=== PATIENT | female | born 1970 | race Caucasian/White ===

== ENCOUNTER 2024-04-26 09:22 | Emergency (ER) | payer BC, SELFPAY ==
[2024-04-26 09:29] VITALS: BP 145/85; PULSE 71; RESP 18; TEMP 36.2; O2SAT 95; BMI 43.5
--- NOTE | 2024-04-26 09:44 | ED.GENADULT ---
HPI - General Adult General Date Seen: 04/26/24 Chief complaint: Extremity Pain/Injury, Lower Stated complaint: L foot pain Time Seen by Provider: 04/26/24 09:43 History of Present Illness HPI narrative: 53 yo F presenting to the ER today for left foot pain. She notes that a couple of weeks ago she was cleaning her house wearing slippers without good arch support and developed some pain in the bottom of her right foot, in the sole. She has specks she is probably developed plantar fasciitis. After that she disposed of her slippers which had poor arch support and has been wearing shoes with better arch support. She had been feeling better. However yesterday she was walking up a flight of stairs at work. She had gone up 26 steps and when she was stepping up and putting weight down on to her right foot she felt a ?pop? in the sole of her right foot and since then she has been having pain across the right foot. Pain is predominantly in the calcaneus and in the bottom of the midfoot and also in the medial foot and in the arch. It feels swollen. She says when she steps on it it feels like she is ?stepping on a baseball. ?. No bruising. No redness. No pain in the ankle or Achilles. No pain in her leg. Related Data Home Medications ?Medication ?Instructions ?Recorded ?Confirmed alprazolam 0.25 mg tablet (Xanax) 0.25 mg PO BID-TID PRN 04/26/24 04/26/24 cholecalciferol (vitamin D3) 125 mcg PO DAILY 04/26/24 04/26/24 escitalopram oxalate .ROUTE 04/26/24 levothyroxine 200 mcg capsule 200 mcg PO DAILY 04/26/24 04/26/24 levothyroxine 25 mcg tablet 25 mcg PO DAILY 04/26/24 04/26/24 metoprolol tartrate 25 mg tablet 25 mg PO DAILY 04/26/24 04/26/24 Allergies Allergy/AdvReac Type Severity Reaction Status Date / Time No Known Drug Allergies Allergy Verified 04/26/24 09:36 [facility] Social History Smoking Status: Never smoker Do you use any of these nicotine containing products: None How often do you have a drink containing alcohol: never How often do you have six or more drinks on one occasion: Never AUDIT-C Alcohol total score: 0 Non-prescribed substance use: denies use Exam Narrative: Exam Narrative: Constitutional: Appears well-developed and well-nourished. Active. Non-toxic appearing. HENT: Head: Atraumatic. No signs of injury. Nose: No nasal discharge. Mouth/Throat: Mucous membranes are moist. Pharynx is normal. Tonsils symmetric. Uvula midline. Airway patent. Eyes: Conjunctivae normal and EOM are normal. Pupils are equal, round, and reactive to light. Right eye exhibits no discharge. Left eye exhibits no discharge. No icterus. Neck: Normal range of motion. Neck supple. No adenopathy. No stridor. Cardiovascular: Normal rate and regular rhythm. Strong DP and PT pulses. Normal distal cap refill. Foot is pink, warm, well perfused Pulmonary/Chest: Effort normal. No stridor. No respiratory distress. No wheezes.No rhonchi. No rales. No retractions. Musculoskeletal: Normal except for her left foot-normal range of motion. No edema. No tenderness. No deformity. Left foot- No tenderness of the gastrocs, Achilles. Medial and lateral malleoli are nontender. Inspection of the foot is normal. No bruising or swelling. No redness. She is quite tender on the sole of the foot especially on the calcaneus and the mid foot in the arch. No bony crepitus. No tenderness over the metatarsal heads and toes. Fifth metatarsal is nontender. She does have intact toe flexion and extension but endorses substantially increased foot pain when she flexes her toes. Neurological: Alert. Normal strength. No cranial nerve deficit or sensory deficit. Coordination normal. GCS eye subscore is 4. GCS verbal subscore is 5. GCS motor subscore is 6. Skin: Skin is warm. No rash noted. Const: Vital Signs, click to edit/add: Vital Signs - 24 hr 04/26/24 09:29 Temperature 97.1 F L Pulse Rate [Right] 71 Respiratory Rate 18 Blood Pressure [Ri ght Upper Arm] 145/85 H Pulse Oximetry 95 Course Vital Signs Vital signs: Initial Vital Signs Temperature 97.1 F L 04/26/24 09:29 Temperature Source Temporal Artery Scan 04/26/24 09:29 Pulse Rate 71 04/26/24 09:29 Respiratory Rate 18 04/26/24 09:29 Blood Pressure 145/85 H 04/26/24 09:29 Blood Pressure Mean 105 04/26/24 09:29 Blood Pressure Position Sitting 04/26/24 09:29 Pulse Oximetry 95 04/26/24 09:29 Vital Signs Temperature 97.1 F L 04/26/24 09:29 Pulse Rate 71 04/26/24 09:29 Respiratory Rate 18 04/26/24 09:29 Blood Pressure 145/85 H 04/26/24 09:29 Pulse Oximetry 95 04/26/24 09:29 Temperature 97.1 F L 04/26/24 09:29 Pulse Rate 71 04/26/24 09:29 Respiratory Rate 18 04/26/24 09:29 Blood Pressure 145/85 H 04/26/24 09:29 Pulse Oximetry 95 04/26/24 09:29 Medical Decision Making MDM Narrative Medical decision making narrative: Very pleasant 53-year-old female presents to the ER today with left foot pain. She has actually been having some mild discomfort in the sole of her left foot for the past few weeks which she thought was probably plantar fasciitis and had been getting better with conservative measures. Yesterday she was walking up some steps when she felt and heard a pop in the sole of her left foot and since then has had increase in pain with some swelling there. She is neurovascularly intact. She has pain and tenderness in the left foot over the mid foot and calcaneus and arch of the foot. No pain or tenderness more proximally in the ankle, Achilles, gastroc. No evidence for leg swelling to suggest DVT. No associated knee pain is knee injury or Avalos's cyst. X-ray the patient's left foot are negative for any acute fracture, dislocation. Lisfranc joint looks good. She does have a bone spur on the calcaneus. At this point she is neurovascularly intact. No evidence for any acute limb ischemia, infection. With reasonable clinical judgment I think she is safe for discharge. She already has crutches at home. She will use them to decrease weight-bearing. Recommend rest, ice, elevation, NSAIDs. Ibuprofen 600 mg every 6 hours as needed. I think she needs close outpatient follow-up with Orthopedics. Imaging Data XR R foot: Attestation: I have reviewed the pertinent imaging results. My impression: No acute fracture. Lisfranc joint looks good. Radiologist's impression: FINDINGS: No acute fracture or dislocation. Minimal degenerative changes greatest at the 1st metatarsophalangeal joint. Calcaneal enthesophytes. Incidental bone island in the 3rd metatarsal. No other osseous abnormality. Soft tissues as imaged are unremarkable. Soft tissues as imaged are unremarkable. IMPRESSION: No acute osseous abnormality. Discharge Plan Discharge Clinical Impression: Foot pain, right Patient Disposition: Home, Self-Care Condition: Stable Instructions: Plantar Fasciitis (ED) Additional Instructions: As we discussed, your x-rays look good. No signs of broken or dislocated bones. I suspect the probably do have plantar fasciitis with a sprain of your foot. Please wear shoes with good arch support and use the crutches to help keep weight off your foot for the next couple of days. To help reduce pain, you can use ibuprofen 600 mg by mouth every 6 hours as needed. You can also try to keep her foot elevated and ice the sole your foot with an ice pack for 15-20 minutes every 4 hours. Please follow-up with the [facility] within the next the 2-4 days if you are not improving. You can call [phone] to schedule an ER follow-up appointment. If you have worsening pain, swelling or redness of your foot to, new bruising or swelling of your foot, please come back to the ER or see your doctors immediately. Prescriptions: No Action cholecalciferol (vitamin D3) 125 mcg/0.5 mL (5K unit/0.5mL) drops 125 mcg PO DAILY alprazolam [Xanax] 0.25 mg tablet 0.25 mg PO BID-TID PRN escitalopram oxalate [Lexapro] .ROUTE levothyroxine 200 mcg capsule 200 mcg PO DAILY levothyroxine 25 mcg tablet 25 mcg PO DAILY metoprolol tartrate 25 mg tablet 25 mg PO DAILY Follow Up/Referrals: Provider,Not a Local [Primary Care Provider] - Stand Alone Forms: [employer] Info Instructions
--- NOTE | 2024-04-26 10:07 | CRLHL7_ITS ---
For Patients: As a result of the Century Cures Act, medical imaging exams and procedure reports are released immediately into your electronic medical record. You may view this report before your referring provider. If you have questions, please contact your health care provider. INDICATION: Left foot pain in calcaneus. [place] pop yesterday. TECHNIQUE: Left foot three views. COMPARISON: None. FINDINGS: No acute fracture or dislocation. Minimal degenerative changes greatest at the 1st metatarsophalangeal joint. Calcaneal enthesophytes. Incidental bone island in the 3rd metatarsal. No other osseous abnormality. Soft tissues as imaged are unremarkable. Soft tissues as imaged are unremarkable. IMPRESSION: No acute osseous abnormality. Dictated by Deacon Sherwood MD @ 04/26/2024 11:40:14 AM (Electronically Signed)
== END 2024-04-26 12:11 | disposition home or self-care (01) ==
PROVIDERS: Emergency Provider Emergency Medicine
DX: M79.672 Pain in left foot (principal); X50.0XXA Overexertion from strenuous movement or load, initial encounter
CPT/HCPCS: 73630; 99282; 99283